=== PATIENT | female | born 1935 | race Native Hawaiian/Other Pacific Islander ===

== ENCOUNTER 2016-12-06 10:45 | Outpatient (CLI) | payer OTHER ==
[~2016-12-06 10:45] MED LIST: BISACODYL LAXATI5 MG PO; ESCITALOPRAM10 MG PO; FURO40TA93 PO; GABA300C2 PO; LIALDA1.2 GM PO; LOFIBRA54 MG PO; NEXIUM40 M1 PO; POTASSIUM CHLO10 ME2 PO; TRAM50TA PO; UNITH DIRECT50 MCG PO; VYTORIN1 TAB PO; WARFARIN5 MG PO
== END 2016-12-06 22:04 | disposition home or self-care (01) ==
LOC: RAD 10:45
DX: M17.0 Bilateral primary osteoarthritis of knee (principal)

== ENCOUNTER 2018-07-10 14:29 | Outpatient (CLI) | payer OTHER | END 2018-07-10 23:25 | disposition home or self-care (01) | LOC: US 14:29 | DX: M25.562 Pain in left knee (principal); Z79.01 Long term (current) use of anticoagulants; Z86.718 Personal history of other venous thrombosis and embolism ==

== ENCOUNTER 2019-10-30 00:58 | Outpatient (CLI) | payer OTHER | END 2019-10-30 01:03 | disposition short-term general hospital (02) | LOC: AMB 00:58 | DX: R11.2 Nausea with vomiting, unspecified (principal); R19.7 Diarrhea, unspecified | CPT/HCPCS: A0425; A0427 ==

== ENCOUNTER 2019-10-30 01:09 | Emergency (ER) | payer OTHER ==
[~2019-10-30] VITALS: Ht 170.2 cm; Wt 71.2 kg
[2019-10-30 02:22] LABS: PLATELET COUNT 275 K/uL (152-353)
[2019-10-30 02:25] LABS: POTASSIUM 3.7 mmol/L (3.6-5.2)
[2019-10-30 02:29] LABS: PARTIAL THROMBOPLASTIN TIME 23.9 SECONDS (24.5-33.6)
[2019-10-30 04:45] VITALS: BP 142/58; TEMP 98.4
== END 2019-10-30 04:45 | disposition home or self-care (01) ==
LOC: ED 01:09
PROVIDERS: Hospitalist
DX: K52.89 Other specified noninfective gastroenteritis and colitis (principal); R11.2 Nausea with vomiting, unspecified; R19.7 Diarrhea, unspecified; R10.84 Generalized abdominal pain; R00.0 Tachycardia, unspecified
CPT/HCPCS: 80053; 82150; 83690; 85027; 85610; 85730; 93005; 96360; 96365; 96366; 96375; 99284; J1956; J2405

== ENCOUNTER 2019-11-12 08:13 | Outpatient (CLI) | payer OTHER ==
[2019-11-12] MEDS ORDERED: LIALDA1.2 GM PO ×2 (11:52→13:09)
[2019-11-12] MEDS ORDERED: GABA300C2 PO (11:53)
[2019-11-12] MEDS ORDERED: ELIQUIS5 MG PO (11:55)
== END 2019-11-12 08:16 | disposition short-term general hospital (02) ==
LOC: AMB 08:13
DX: M25.551 Pain in right hip (principal); W18.39XA Other fall on same level, initial encounter; Y92.89 Other specified places as the place of occurrence of the external cause
CPT/HCPCS: A0425; A0427

== ENCOUNTER 2019-11-12 08:19 | Observation (INO) | payer OTHER ==
[~2019-11-12] VITALS: Ht 167.6 cm; Wt 78.0 kg
[2019-11-12 08:19] VITALS: BP 157/65; TEMP 97.5
[2019-11-12 09:00] LABS: POTASSIUM 3.7 mmol/L (3.6-5.2); SODIUM 142 mmol/L (136-145)
[2019-11-12 09:15] LABS: PLATELET COUNT 373 K/uL (152-353)
[2019-11-12 11:00] VITALS: BP 146/68
[2019-11-12] MEDS ORDERED: LIALDA1.2 GM PO ×2 (11:52→13:09)
[2019-11-12] MEDS ORDERED: GABA300C2 PO (11:53)
[2019-11-12] MEDS ORDERED: ELIQUIS5 MG PO (11:55)
[2019-11-12 12:42] VITALS: BP 134/60; TEMP 98.6; Ht 167.6 cm; Wt 78.0 kg
[2019-11-12 14:05] VITALS: BP 134/59; TEMP 98.6
[2019-11-12 16:29] VITALS: BP 124/48; TEMP 97.7
[2019-11-12 19:58] VITALS: BP 125/57; TEMP 98.7
[2019-11-13 00:28] VITALS: BP 127/94; TEMP 98.8
[2019-11-13 04:00] VITALS: BP 151/68; TEMP 98.4
[2019-11-13 08:00] VITALS: BP 145/55; TEMP 98.3
== END 2019-11-13 21:05 | disposition home or self-care (01) ==
LOC: ED 08:19 → MED/SURG 10:50
PROVIDERS: ADMIT Emergency Medicine
DX: R55 Syncope and collapse (principal); R10.2 Pelvic and perineal pain; D53.9 Nutritional anemia, unspecified; S80.02XA Contusion of left knee, initial encounter; S70.01XA Contusion of right hip, initial encounter; S00.83XA Contusion of other part of head, initial encounter; S20.212A Contusion of left front wall of thorax, initial encounter; W18.39XA Other fall on same level, initial encounter; Y92.89 Other specified places as the place of occurrence of the external cause; E03.8 Other specified hypothyroidism; E78.00 Pure hypercholesterolemia, unspecified; F32.89 Other specified depressive episodes
CPT/HCPCS: 51702; 80053; 81000; 82272; 83735; 84484; 85027; 87088; 93005; 96360; 96375; 99220; 99284; G0378; J2405

== ENCOUNTER 2020-09-13 04:18 | Observation (INO) | payer OTHER ==
[~2020-09-13] VITALS: Ht 167.6 cm; Wt 74.0 kg
[2020-09-13] VITALS (16 sets, daily range): BP systolic 106–178; BP diastolic 47–119; TEMP 97.7–98.6; Ht 167.6 cm; Wt 74.0 kg
[~2020-09-13 04:18] MED LIST changes: +ELIQUIS5 MG PO
[2020-09-13 05:40] LABS: PLATELET COUNT 239 K/uL (152-353)
[2020-09-13 06:05] LABS: POTASSIUM 3.8 mmol/L (3.6-5.2); SODIUM 140 mmol/L (136-145)
[2020-09-13 06:08] LABS: PARTIAL THROMBOPLASTIN TIME 24.5 SECONDS (24.5-33.6)
[2020-09-13 15:15] LABS: PLATELET COUNT 225 K/uL (152-353)
[2020-09-14] VITALS: BP 129/80; TEMP 98.5
[2020-09-14 04:00] VITALS: BP 142/68; TEMP 98.3
[2020-09-14 08:30] VITALS: BP 167/79; TEMP 98.4
== END 2020-09-14 12:45 | disposition home health service (06) ==
LOC: ED 04:18 → MED/SURG 06:33
PROVIDERS: Hospitalist; Internal Medicine; ADMIT Internal Medicine
DX: D62 Acute posthemorrhagic anemia (principal); Z79.01 Long term (current) use of anticoagulants; R53.1 Weakness; R26.81 Unsteadiness on feet; Z86.711 Personal history of pulmonary embolism; E03.8 Other specified hypothyroidism; M15.8 Other polyosteoarthritis; I25.10 Atherosclerotic heart disease of native coronary artery without angina pectoris; G62.89 Other specified polyneuropathies; I12.9 Hypertensive chronic kidney disease with stage 1 through stage 4 chronic kidney disease, or unspecified chronic kidney disease; N18.2 Chronic kidney disease, stage 2 (mild); K50.90 Crohn's disease, unspecified, without complications; S51.801A Unspecified open wound of right forearm, initial encounter; W18.39XA Other fall on same level, initial encounter; Y92.89 Other specified places as the place of occurrence of the external cause; R06.02 Shortness of breath
CPT/HCPCS: 36415; 51702; 80053; 81000; 82550; 83880; 84484; 85027; 85610; 85730; 86850; 86900; 86901; 86922; 87635; 93005; 94760; 96360; 96365; 96366; 96375; 99220; 99284; G0378; J1956; J2270; J2405; P9016; U0003

== ENCOUNTER 2020-09-22 11:27 | Outpatient (CLI) | payer OTHER ==
[2020-09-22 12:02] LABS: POTASSIUM 4.1 mmol/L (3.6-5.2)
[2020-09-22 13:23] LABS: PLATELET COUNT 380 K/uL (152-353)
== END 2020-09-22 19:06 | disposition home or self-care (01) ==
LOC: LAB 11:27
PROVIDERS: ATTEND Nurse Practitioner Family
DX: I10 Essential (primary) hypertension (principal); I25.10 Atherosclerotic heart disease of native coronary artery without angina pectoris; I73.89 Other specified peripheral vascular diseases; D64.89 Other specified anemias; R06.02 Shortness of breath; R53.1 Weakness; R53.83 Other fatigue
CPT/HCPCS: 80053; 82272; 85027

== ENCOUNTER 2020-10-04 12:25 | Outpatient (CLI) | payer OTHER ==
[2020-10-04 12:36] LABS: PLATELET COUNT 334 K/uL (152-353)
[2020-10-04 12:44] LABS: POTASSIUM 4.2 mmol/L (3.6-5.2)
== END 2020-10-04 22:29 | disposition home or self-care (01) ==
LOC: LAB 12:25
PROVIDERS: ATTEND Internal Medicine
DX: D64.89 Other specified anemias (principal); Z79.01 Long term (current) use of anticoagulants; R06.02 Shortness of breath; R55 Syncope and collapse
CPT/HCPCS: 80053; 85027

== ENCOUNTER 2020-11-02 12:32 | Outpatient (CLI) | payer OTHER ==
[2020-11-02 13:10] LABS: PLATELET COUNT 241 K/uL (152-353)
[2020-11-02 13:22] LABS: POTASSIUM 4.6 mmol/L (3.6-5.2)
== END 2020-11-02 20:23 | disposition home or self-care (01) ==
LOC: LAB 12:32
PROVIDERS: ATTEND Nurse Practitioner Family
DX: I10 Essential (primary) hypertension (principal); Z79.01 Long term (current) use of anticoagulants; D64.89 Other specified anemias; Z86.718 Personal history of other venous thrombosis and embolism
CPT/HCPCS: 80053; 85027

== ENCOUNTER 2021-02-01 09:49 | Outpatient (CLI) | payer OTHER | END 2021-02-01 22:41 | disposition home or self-care (01) | LOC: INF 09:49 | PROVIDERS: ATTEND Internal Medicine | DX: Z23 Encounter for immunization (principal) | CPT/HCPCS: 96372 ==

== ENCOUNTER 2021-02-23 09:53 | Outpatient (CLI) | payer OTHER | END 2021-02-23 19:36 | disposition home or self-care (01) | LOC: INF | PROVIDERS: ATTEND Internal Medicine | DX: Z23 Encounter for immunization (principal) | CPT/HCPCS: 96372 ==

== ENCOUNTER 2022-12-10 09:55 | Outpatient (CLI) | payer OTHER | END 2022-12-10 20:18 | disposition home or self-care (01) | LOC: RESP 09:55 | PROVIDERS: ATTEND Internal Medicine | DX: R00.2 Palpitations (principal); I25.10 Atherosclerotic heart disease of native coronary artery without angina pectoris; E78.2 Mixed hyperlipidemia; R06.02 Shortness of breath; R55 Syncope and collapse; R42 Dizziness and giddiness; R26.81 Unsteadiness on feet | CPT/HCPCS: 93225 ==

== ENCOUNTER 2023-01-19 16:35 | Outpatient (CLI) | payer OTHER | END 2023-01-19 19:38 | disposition home or self-care (01) | LOC: LABW 16:35 | PROVIDERS: ATTEND Internal Medicine | DX: R19.7 Diarrhea, unspecified (principal) | CPT/HCPCS: 82272; 83630; 87015; 87045; 87324; 87328; 87329; 87449; 87899 ==

== ENCOUNTER 2023-03-26 16:06 | Outpatient (CLI) | payer OTHER | END 2023-03-26 19:09 | disposition home or self-care (01) | LOC: RAD 16:06 | PROVIDERS: ATTEND Internal Medicine | DX: R42 Dizziness and giddiness (principal); R53.83 Other fatigue; R51.9 Headache, unspecified; H53.8 Other visual disturbances; W19.XXXA Unspecified fall, initial encounter; Y92.89 Other specified places as the place of occurrence of the external cause ==